=== PATIENT | male | born 1945 | race Caucasian/White ===

== ENCOUNTER 2019-06-22 16:23 | Inpatient (IN) | payer MEDICARE ==
[~2019-06-22] VITALS: Ht 177.8 cm; Wt 97.1 kg
[~2019-06-22 16:23] MED LIST changes: -AMOCLA875 PO; -Ceftriaxone2 G1 IV; -PIOG45 PO; -TAMS.4ER PO
[2019-06-22 17:27] LABS: BASOPHILS ABSOLUTE AUTO 0.04 K/mm3 (0.00-0.23); BASOPHILS PERCENT AUTO 0 % (0-2); EOSINOPHILS ABSOLUTE AUTO 0.01 K/mm3 (0.00-0.68); EOSINOPHILS PERCENT AUTO 0 % (0-6); Hematocrit 44.8 % (37.0-53.0); IMMATURE GRAN ABSOLUTE AUTO 0.06 K/mm3 (0.00-0.10); IMMATURE GRAN PERCENT AUTO 0 % (0-1); LYMPHOCYTES ABSOLUTE AUTO 2.31 K/mm3 (0.84-5.20); LYMPHOCYTES PERCENT AUTO 15 % (21-46); MONOCYTES PERCENT AUTO 10 % (4-13); Mean Corpuscular HGB 30.4 pg (26.0-34.0); Mean Corpuscular HGB Conc 31.3 g/dL (31.5-36.5); Mean Corpuscular Volume 97 fL (80-100); Mean Platelet Volume 11.1 fL (9.1-12.4); NEUTROPHILS ABSOLUTE AUTO 11.66 K/mm3 (1.96-9.15); NEUTROPHILS PERCENT AUTO 74 % (41-73); Platelet Count 179 K/mm3 (150-400); RDW Coefficient Variation 13.4 % (11.7-14.2); White Blood Cell Count 15.68 K/mm3 (4.00-11.30)
[2019-06-22 17:54] LABS: Alanine Aminotransfer (ALT/SGP 15 U/L (12-78); Albumin, Blood 3.6 g/dL (3.4-5.0); Albumin/Globulin Ratio 0.9 (0.8-1.8); Alk Phos 63 U/L (50-136); Anion Gap 6 mmol/L (6-16); Aspartate Aminotrans (AST/SGOT 13 U/L (12-37); Bilirubin, Total 0.9 mg/dL (0.1-1.0); Blood Urea Nitrogen 18 mg/dL (8-24); Bun/Creatinine Ratio 16.7 (12.0-20.0); CO2, Blood 27 mmol/L (21-32); Calcium, Blood 9.4 mg/dL (8.5-10.1); Chloride, Blood 105 mmol/L (98-108); Creatinine, Blood 1.08 mg/dL (0.60-1.20); Glomerular Filtration Rate >60 (60-); Glucose, Blood 109 mg/dL (70-99); Potassium, Blood 4.2 mmol/L (3.5-5.5); Sodium, Blood 138 mmol/L (136-145); Total Protein, Blood 7.6 g/dL (6.4-8.2)
[2019-06-22] MEDS ORDERED: PIOG45 PO (18:06)
--- NOTE | 2019-06-23 04:19 | NUR ---
PT ARRIVAL PT ARRIVES TO UNIT VIA [facility] 06/22 @ 1950. AMBULATES SBA TO BED. ADMISSION COMPLETE. 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 MRSA SWAB SENT OF ULCER TO BOTTOM R FT BEFORE 4 HR ABX TIMEFRAME. ASSUMING CARE OF PT.
--- NOTE | 2019-06-23 04:21 | NUR ---
SHIFT SUMMARY PT NPO SINCE [place] FOR I&D OF L FT ON 06/[address] OLEARY. PHOTO CONSENT OBTAINED AND PHOTOS DOCUMENTED IN CHART OF ULCERATION TO BOTTOM OF L FT. FT IS RED AND SWOLLEN, BUT DOES NOT EXTEND TO ANKLES. PT REPORTS CHRONIC NEUROPATHY TO BILAT FT. A&O X 4, INDEPENDENT IN RM. VSS, AFEBRILE. CBG 109, NO COV NEEDED. PT RESTING IN BED AT THIS TIME, CALL LT IN REACH. ABLE TO MAKE NEEDS KNOWN/USE CALL LT APPROP. WILL CONT TO MONITOR AND PROVIDE CARE UNTIL PRESUMED BY ONCOMING RN.
--- NOTE | 2019-06-23 05:21 | NUR ---
AM LABS DRAWN WITH NEW IV START BY THIS RN.
[2019-06-23 06:00] LABS: BASOPHILS ABSOLUTE AUTO 0.03 K/mm3 (0.00-0.23); BASOPHILS PERCENT AUTO 0 % (0-2); EOSINOPHILS ABSOLUTE AUTO 0.04 K/mm3 (0.00-0.68); EOSINOPHILS PERCENT AUTO 0 % (0-6); Hematocrit 36.5 % (37.0-53.0); Hemoglobin 11.9 g/dL (13.5-17.5); IMMATURE GRAN ABSOLUTE AUTO 0.04 K/mm3 (0.00-0.10); IMMATURE GRAN PERCENT AUTO 0 % (0-1); LYMPHOCYTES ABSOLUTE AUTO 1.68 K/mm3 (0.84-5.20); LYMPHOCYTES PERCENT AUTO 14 % (21-46); MONOCYTES PERCENT AUTO 10 % (4-13); Mean Corpuscular HGB 30.7 pg (26.0-34.0); Mean Corpuscular HGB Conc 32.6 g/dL (31.5-36.5); NEUTROPHILS ABSOLUTE AUTO 9.32 K/mm3 (1.96-9.15); NEUTROPHILS PERCENT AUTO 76 % (41-73); Platelet Count 167 K/mm3 (150-400); RDW Coefficient Variation 13.3 % (11.7-14.2); RDW Standard Deviation 45.6 fL (35.1-46.3); Red Blood Cell Count 3.87 M/mm3 (4.30-5.90); White Blood Cell Count 12.31 K/mm3 (4.00-11.30)
[2019-06-23 06:07] LABS: Mean Corpuscular Volume 94 fL (80-100)
[2019-06-23 06:27] LABS: International Normalized Ratio 1.02; Prothrombin Time Results 10.8 Sec (9.7-11.5)
--- NOTE | 2019-06-23 12:45 | NUR ---
PATIENT TO DAY SURGERY FOR I&D OF L FOOT WOUND.
--- NOTE | 2019-06-23 13:01 | NUR ---
History, Chart, Medications and Allergies reviewed before start of procedure. Patient confirms NPO status and agrees with scheduled surgery. Left foot/lower leg prepped with 2% Chlorhexidine cloth wipe, avoiding open wound.
--- NOTE | 2019-06-23 13:10 | NUR ---
PATIENT OUT OF ROOM CARE ROUNDING NOT DONE.
--- NOTE | 2019-06-23 15:31 | NUR ---
PATIENT ARRIVED BACK FROM PACU. VITALS ARE STABLE, ON RA. DENIES ANY PAIN TO L FOOT. L FOOT ELEVATED ON PILLOWS. PATIENT WIDE AWAKE AND MEAL TRAY ORDERED. DAUGHTER AT BEDSIDE.
--- NOTE | 2019-06-23 18:19 | NUR ---
PATIENT A/OX4, UP INDPENENDENTLY IN ROOM. HAD AN I&D OF L FOOD FOOT TODAY AND DRESSING REMAINS C/D/I. DENIES ANY PAIN OR DISCOMFORT AT SURGICAL SITE. WBAT AND L FOOT ELEVATED WHILE IN BED. VSS THIS SHIFT, ON RA. ADA DIET, BLOOD SUGARS ACHS. 18G IV TO R WRIST, SL BETWEEN ABX. CALM AND COOPERATIVE WITH CARE, CALLS APPROPRIATELY FOR ASSISTANCE.
--- NOTE | 2019-06-24 06:03 | NUR ---
SHIFT SUMMARY PT A/O INDEPENDENT. C/O PAIN IN L FOOT X2 AND MEDICATED PER EMAR. NO S/S OF HEAVY BLEEDING IN L FOOT. HE WAS ABLE TO SLEEP T/O NIGHT. KEPT L FOOT ELEVATED ON PILLOWS. CALL LIGHT IN REACH.
--- NOTE | 2019-06-24 16:35 | NUR ---
SHIFT SUMMARY PT WOUND EVALUATED BY DOCTOR. DUE TO REDNESS AND SWELLING THE PT WILL REMAIN FOR AT LEAST ONE MORE DAY HERE ON IV ANTIBIOTICS. PHYSICAL THERAPY WILL EVALUATE THE PT TODAY. THE PT IS ANXIOUS TO AMBULATE AND TO GO HOME. NO COMPLAINTS OF PAIN. PT IS A&O X4 AND COOPERATIVE WITH CARE. I TALKED WITH CHARGE, WE INVESTIGATED THE PT'S HISTORY AND FOUND NO REASON FOR THE PT TO REMAIN IN CONTACT PRECAUTIONS. PT DENIES STATING HE HAD MRSA, HE STATES HE HAD STAPH.
[2019-06-25 05:00] LABS: BASOPHILS ABSOLUTE AUTO 0.04 K/mm3 (0.00-0.23); BASOPHILS PERCENT AUTO 0 % (0-2); EOSINOPHILS ABSOLUTE AUTO 0.24 K/mm3 (0.00-0.68); EOSINOPHILS PERCENT AUTO 3 % (0-6); Hematocrit 35.6 % (37.0-53.0); Hemoglobin 11.5 g/dL (13.5-17.5); IMMATURE GRAN ABSOLUTE AUTO 0.04 K/mm3 (0.00-0.10); IMMATURE GRAN PERCENT AUTO 0 % (0-1); LYMPHOCYTES ABSOLUTE AUTO 1.77 K/mm3 (0.84-5.20); LYMPHOCYTES PERCENT AUTO 19 % (21-46); MONOCYTES ABSOLUTE AUTO 0.81 K/mm3 (0.16-1.47); MONOCYTES PERCENT AUTO 9 % (4-13); Mean Corpuscular HGB 30.7 pg (26.0-34.0); Mean Corpuscular HGB Conc 32.3 g/dL (31.5-36.5); Mean Corpuscular Volume 95 fL (80-100); Mean Platelet Volume 11.1 fL (9.1-12.4); NEUTROPHILS ABSOLUTE AUTO 6.56 K/mm3 (1.96-9.15); NEUTROPHILS PERCENT AUTO 69 % (41-73); Platelet Count 184 K/mm3 (150-400); RDW Standard Deviation 45.4 fL (35.1-46.3); Red Blood Cell Count 3.75 M/mm3 (4.30-5.90); White Blood Cell Count 9.46 K/mm3 (4.00-11.30)
[2019-06-25 05:24] LABS: Anion Gap 7 mmol/L (6-16); Blood Urea Nitrogen 14 mg/dL (8-24); Bun/Creatinine Ratio 12.6 (12.0-20.0); CO2, Blood 27 mmol/L (21-32); Calcium, Blood 8.4 mg/dL (8.5-10.1); Chloride, Blood 107 mmol/L (98-108); Creatinine, Blood 1.11 mg/dL (0.60-1.20); Glomerular Filtration Rate >60 (60-); Glucose, Blood 102 mg/dL (70-99); Potassium, Blood 3.9 mmol/L (3.5-5.5); Sodium, Blood 141 mmol/L (136-145)
--- NOTE | 2019-06-25 07:08 | NUR ---
SHIFT SUMMARY NO C/O PAIN. WAS ABLE TO SLEEP T/O NIGHT OFF AND ON. CALL LIGHT IN REACH.
[2019-06-25] MEDS ORDERED: AMOCLA875 PO (13:00)
--- NOTE | 2019-06-25 13:23 | NUR ---
DISCHARGE NOTE IV DC'D WNL. DISCHARGE MEDICATION CALLED IN TO PREFERED PHARMACY. PT PROVIDED WITH HARDCOPY AND VERBAL INSTRUCTIONS FOR DISCHARGE RE: DIAGNOSES, MEDICATIONS, FOLLOW UP APPOINTMENTS. PT HAD NO FURTHER QUESTIONS. PERSONAL POSSESSIONS GATHERED. PT DRESSED IN PERSONAL CLOTHING. PT ASSISTED OUT VIA WHEELCHAIR BY AEROBICS INSTRUCTOR.
== END 2019-06-25 13:26 | disposition home or self-care (01) | DRG 988 ==
LOC: ER 16:23 → MEDS 19:05
PROVIDERS: Emergency Medicine; Internal Medicine; Podiatrist; ADMIT Hospitalist
PROC: 0J9R0ZZ Drainage of Left Foot Subcutaneous Tissue and Fascia, Open Approach (ICD-10-PCS; principal; 2019-06-23 13:00)
DX: E11.621 Type 2 diabetes mellitus with foot ulcer (principal); L03.116 Cellulitis of left lower limb; L97.529 Non-pressure chronic ulcer of other part of left foot with unspecified severity; E11.628 Type 2 diabetes mellitus with other skin complications; I10 Essential (primary) hypertension; E78.5 Hyperlipidemia, unspecified; Z87.891 Personal history of nicotine dependence; B95.61 Methicillin susceptible Staphylococcus aureus infection as the cause of diseases classified elsewhere
CPT/HCPCS: 36415; 73630; 80048; 80053; 82947; 85025; 85610; 87071; 87075; 87081; 87147; 87205; 90471; 90714; 93005; 93010; 96365; 97116; 97161; 99285-25; A9270-GY; J1650; J2543; J2704; J3010; J7030; J7120

== ENCOUNTER → 2019-06-22 | Outpatient (CLI) | payer MEDICARE ==
[~2019-06-22] MED LIST: AMOCLA875 PO; Aspirin EC81 MG PO; Bactrim Ds Tab1 EACH PO; CEPH500 PO; Ceftriaxone2 G1 IV; GABA100 PO; GLIM4 PO; HYDMOR2 PO; Hydrocodone-Ap1 EA23 PO; LISI5 PO; Metformin HCl1000 MG PO; PIOG15 PO; PIOG45 PO; Simvastatin20 MG PO; TAMS.4ER PO; VITAMIN D31000 UNIT PO
== END | disposition home or self-care (01) ==
LOC: LAB SHORT 17:40 → LAB 17:40
DX: L02.612 Cutaneous abscess of left foot (principal)
CPT/HCPCS: 87070; 87077; 87147; 87186; 87205

== ENCOUNTER 2019-06-30 10:43 | Day surgery (SDC) | payer MEDICARE, OTHER ==
[~2019-06-30 10:43] MED LIST changes: +AMOCLA875 PO; +PIOG45 PO
[2019-06-30] MEDS ORDERED: Ceftriaxone2 G1 IV (14:51)
== END 2019-06-30 15:16 | disposition home or self-care (01) ==
LOC: ATC 10:43
DX: L03.116 Cellulitis of left lower limb (principal); E11.42 Type 2 diabetes mellitus with diabetic polyneuropathy; Z79.899 Other long term (current) drug therapy; Z79.84 Long term (current) use of oral hypoglycemic drugs; Z79.82 Long term (current) use of aspirin; Z87.891 Personal history of nicotine dependence
CPT/HCPCS: 96365; J0696

== ENCOUNTER 2019-07-01 13:57 | Day surgery (SDC) | payer MEDICARE, OTHER ==
[~2019-07-01 13:57] MED LIST changes: +Ceftriaxone2 G1 IV
== END 2019-07-01 14:34 | disposition home or self-care (01) ==
LOC: ATC 13:57
DX: L03.116 Cellulitis of left lower limb (principal); E11.621 Type 2 diabetes mellitus with foot ulcer; L97.529 Non-pressure chronic ulcer of other part of left foot with unspecified severity; E11.42 Type 2 diabetes mellitus with diabetic polyneuropathy; Z79.899 Other long term (current) drug therapy; Z79.84 Long term (current) use of oral hypoglycemic drugs; Z79.82 Long term (current) use of aspirin; Z87.891 Personal history of nicotine dependence
CPT/HCPCS: 96365; J0696

== ENCOUNTER 2019-07-02 14:57 | Day surgery (SDC) | payer MEDICARE, OTHER | END 2019-07-02 16:00 | disposition home or self-care (01) | LOC: ATC 14:57 | DX: L03.116 Cellulitis of left lower limb (principal); E11.40 Type 2 diabetes mellitus with diabetic neuropathy, unspecified; Z87.891 Personal history of nicotine dependence | CPT/HCPCS: 96365; J0696 ==

== ENCOUNTER 2019-07-04 17:45 | Observation (INO) | payer MEDICARE, OTHER ==
[~2019-07-04] VITALS: Ht 177.8 cm; Wt 92.4 kg
[2019-07-04 20:39] LABS: BASOPHILS ABSOLUTE AUTO 0.06 K/mm3 (0.00-0.23); BASOPHILS PERCENT AUTO 0 % (0-2); EOSINOPHILS PERCENT AUTO 1 % (0-6); Hematocrit 40.2 % (37.0-53.0); Hemoglobin 12.9 g/dL (13.5-17.5); IMMATURE GRAN ABSOLUTE AUTO 0.08 K/mm3 (0.00-0.10); IMMATURE GRAN PERCENT AUTO 1 % (0-1); LYMPHOCYTES ABSOLUTE AUTO 2.63 K/mm3 (0.84-5.20); LYMPHOCYTES PERCENT AUTO 18 % (21-46); MONOCYTES ABSOLUTE AUTO 0.93 K/mm3 (0.16-1.47); MONOCYTES PERCENT AUTO 7 % (4-13); Mean Corpuscular HGB 30.6 pg (26.0-34.0); Mean Corpuscular HGB Conc 32.1 g/dL (31.5-36.5); Mean Corpuscular Volume 95 fL (80-100); Mean Platelet Volume 10.3 fL (9.1-12.4); NEUTROPHILS ABSOLUTE AUTO 10.53 K/mm3 (1.96-9.15); NEUTROPHILS PERCENT AUTO 73 % (41-73); Platelet Count 409 K/mm3 (150-400); RDW Coefficient Variation 12.6 % (11.7-14.2); RDW Standard Deviation 44.2 fL (35.1-46.3); Red Blood Cell Count 4.22 M/mm3 (4.30-5.90); White Blood Cell Count 14.33 K/mm3 (4.00-11.30)
[2019-07-04 20:56] LABS: Alanine Aminotransfer (ALT/SGP 11 U/L (12-78); Albumin/Globulin Ratio 0.7 (0.8-1.8); Alk Phos 68 U/L (50-136); Anion Gap 5 mmol/L (6-16); Aspartate Aminotrans (AST/SGOT 13 U/L (12-37); Bilirubin, Total 0.3 mg/dL (0.1-1.0); Blood Urea Nitrogen 12 mg/dL (8-24); CO2, Blood 27 mmol/L (21-32); Calcium, Blood 9.3 mg/dL (8.5-10.1); Chloride, Blood 110 mmol/L (98-108); Creatinine, Blood 0.92 mg/dL (0.60-1.20); Globulin, Blood 4.6 g/dL (2.2-4.0); Glomerular Filtration Rate >60 (60-); Glucose, Blood 107 mg/dL (70-99); Potassium, Blood 4.2 mmol/L (3.5-5.5); Sodium, Blood 142 mmol/L (136-145); Total Protein, Blood 7.6 g/dL (6.4-8.2)
[2019-07-05 05:38] LABS: BASOPHILS ABSOLUTE AUTO 0.05 K/mm3 (0.00-0.23); BASOPHILS PERCENT AUTO 1 % (0-2); EOSINOPHILS ABSOLUTE AUTO 0.19 K/mm3 (0.00-0.68); EOSINOPHILS PERCENT AUTO 2 % (0-6); Hematocrit 38.4 % (37.0-53.0); Hemoglobin 12.1 g/dL (13.5-17.5); IMMATURE GRAN ABSOLUTE AUTO 0.08 K/mm3 (0.00-0.10); IMMATURE GRAN PERCENT AUTO 1 % (0-1); LYMPHOCYTES ABSOLUTE AUTO 2.57 K/mm3 (0.84-5.20); LYMPHOCYTES PERCENT AUTO 26 % (21-46); MONOCYTES ABSOLUTE AUTO 0.77 K/mm3 (0.16-1.47); MONOCYTES PERCENT AUTO 8 % (4-13); Mean Corpuscular HGB 30.1 pg (26.0-34.0); Mean Corpuscular HGB Conc 31.5 g/dL (31.5-36.5); Mean Corpuscular Volume 96 fL (80-100); Mean Platelet Volume 10.2 fL (9.1-12.4); NEUTROPHILS ABSOLUTE AUTO 6.35 K/mm3 (1.96-9.15); NEUTROPHILS PERCENT AUTO 63 % (41-73); Platelet Count 397 K/mm3 (150-400); RDW Coefficient Variation 12.6 % (11.7-14.2); RDW Standard Deviation 44.7 fL (35.1-46.3); Red Blood Cell Count 4.02 M/mm3 (4.30-5.90); White Blood Cell Count 10.01 K/mm3 (4.00-11.30)
--- NOTE | 2019-07-05 06:48 | NUR ---
SHIFT SUMMARY PT WAS A NEW ADMIT DURING THE NIGHT, ARRIVING ON THE FLOOR AT 2214. HE WAS ADMITTED FOR A L DIABETIC FOOT ULCER IN PREP FOR A SURGICAL DEBRIDEMENT AND POSSIBLE TOE AMPUTATION TODAY. PT'S FOOT WAS WRAPPED BY WIRING TECHNICIAN DR OLEARY IN HIS OFFICE PRIOR TO ADMISSION. HE DENIED ANY COMPLAINTS OF PAIN, NAUSEA OR SOB DURING THE NIGHT. VITAL SIGNS STABLE. NO ACUTE CHANGES IN PT CONDITION NOTED DURING THE NIGHT. WILL CONTINUE TO MONITOR AND TREAT PER EMAR UNTIL HAND OFF TO DAY SHIFT RN.
--- NOTE | 2019-07-05 11:41 | NUR ---
INTO SDS VIA [facility]. PT A&OX3-EAGLE. DENIES PAIN OR NAUSEA. HISTORY AND ALLERGIES REVIEWED. NPO STATUS CONFIRMED. LUNGS CLEAR-SATS>90% ON RA.
--- NOTE | 2019-07-05 14:15 | NUR ---
PT ARRIVED BACK FROM THE PACU, A/OX3 ON 1L/MIN O2 VIA NC, FAMILY AT THE BEDSIDE, BP TAKEN 99/67 HR 115, LUNCH TRAY ORDERED FOR THE PT, WILL CONTINUE TO MONITOR FOR CHANGES
--- NOTE | 2019-07-05 16:22 | NUR ---
PT IS A/OX3, PLEASANT AND COOPERATIVE, THE PT IS UP WITH 1 ASSIST, NON WEIGHT BEARING ON THE LEFT FOOT, THE PT WAS TAKEN TO THE OR TODAY BY DR. CABRALES AND HAD A DEBRIDEMENT AND SECOND TOE AMPUTATION, THE PT DENIES ANY PAIN AT THIS TIME, THE PT APPEARS TO BE BREATHING EASILY AT THIS TIME ON RA, FAMILY AT THE BEDSIDE, CALL LIGHT IN REACH WILL CONTINUE TO MONITOR AND ASSESS FOR CHANGES
--- NOTE | 2019-07-06 04:14 | NUR ---
SHIFT SUMMARY PT ADMITTED FOR DIABETIC FOOT ULCER. FULL CODE. ADA DIET. ELEVATE LLE ABOVE HIP LEVEL. CBG AT AC AND HS. KEEP DRESSING/INCISION CLEAN AND DRY UNTIL INSTRUCTED BY SURGEON. LOVENOX FOR DVT PROPHYLAXIS. tHE PT DID HAVE COMPLAINTS OF 2/10 PAIN THIS NIGHT, CALL TO DOCTOR TO OBTAIN ORDER FOR NORCO 5/325 1 TAB Q 4 HRS PRN. PT DID NOT HAVE ORDER FOR PAIN MEDICATION, POSSIBLY DUE TO NERVE BLOCK THAT WAS PERFORMED PER REPORT. PT STATED PAIN MEDICATION MADE PT PAIN 0/10. THE PT HAS APPEARED TO SLEEP COMFORTABLY MOST OF THE NIGHT WITH NO APPARENT SIGNS OF ACUTE DISTRESS. ABLE TO MAKE NEEDS KNOWN AND CALL LIGHT IN REACH.
[2019-07-06 18:04] LABS: Alanine Aminotransfer (ALT/SGP 12 U/L (12-78); Albumin, Blood 2.9 g/dL (3.4-5.0); Albumin/Globulin Ratio 0.6 (0.8-1.8); Alk Phos 66 U/L (50-136); Anion Gap 5 mmol/L (6-16); Aspartate Aminotrans (AST/SGOT 9 U/L (12-37); Bilirubin, Total 0.4 mg/dL (0.1-1.0); Blood Urea Nitrogen 9 mg/dL (8-24); Bun/Creatinine Ratio 7.3 (12.0-20.0); CO2, Blood 30 mmol/L (21-32); Chloride, Blood 106 mmol/L (98-108); Creatinine, Blood 1.24 mg/dL (0.60-1.20); Globulin, Blood 4.6 g/dL (2.2-4.0); Glomerular Filtration Rate >60 (60-); Glucose, Blood 157 mg/dL (70-99); Potassium, Blood 4.1 mmol/L (3.5-5.5); Sodium, Blood 141 mmol/L (136-145); Total Protein, Blood 7.5 g/dL (6.4-8.2)
--- NOTE | 2019-07-06 19:02 | NUR ---
PT IS A/OX3, PLEASANT AND COOPERATIVE, THE PT IS UP WITH MINIMAL ASSIST, THE PT TODAY WAS UP AMBULATING IN THE [place] HEEL TOUCH ON THE LEFT FOOT WITH THE PHYSICAL THERAPIST, THE PT FELT GOOD FOR MOST OF THE DAY DENIED PAIN UNTIL THIS EVENING THE PT REPORTED THAT HE WAS STARTING TO FEEL PAIN IN THE RIGHT LOWER QUAD ABD A NORCO WAS GIVEN, AN HOUR LATER THE PTS DAUGHTER WAS IN THE ROMM AND THE PT STATED THAT HE FELT HIS PAIN WAS WORSE AND THAT HE WAS NAUSEATED, A CALL WAS MADE TO DR. BRIGGS AND THE PTS DC WAS POSTPONED A CT OF THE ABD WAS DONE, THE PT WAS GIVEN IV TORADOL, A STAT UA WAS ORDERED ND THE PT STATED THAT HE WAS NOT READY TO URINATE JUST YET, INSTRUCTION TO COLLECT WAS LEFT WITH THE NIGHT STAFF, CALL LIGHT IN REACH, FAMILY AT THE BEDSIDE, THE PT APPEARS TO BE BREATHING EASILY ON RA
--- NOTE | 2019-07-06 20:03 | NUR ---
1930: ASSUMED CARE OF PATIENT. PT LAYING IN BED, REPORTS PAIN RLQ RADIATING TO BACK(APPARENT KIDNEY STONE PER REPORT) DAY RN TO GIVE PAIN MED. PT CALM AND COOPERATIVE, DENIES SOB/NAUSEA. ALERT AND ORIENTED AND ABLE TO MAKE NEEDS KNOWN. CALL CHAPPELL WITHIN REACH.
[2019-07-07 07:58] LABS: Source, Urine Clean Catch
[2019-07-07 08:14] LABS: Appearance, Urine Clear (Clear); Bilirubin, Urine Neg (Neg); Blood, Urine Neg (Neg); Color, Urine Yellow (P-Yellow); Glucose Qualitative, Urine Neg (Neg); Ketones, Urine Neg (Neg); Leukocyte Esterase, Urine Neg (Neg); Nitrite, Urine Neg (Neg); Protein, Urine 1+ (Neg); Specific Gravity, Urine 1.015 (1.003-1.022); Urobilinogen, Urine NORM (Normal)
--- NOTE | 2019-07-07 09:00 | NUR ---
PT PLEASANT COOP A/O/ DENIES PIAN AT THIS TIME. H/R REG, NO MURMER NOTED. NO TELE. LUNGS CLEAR RESP EASY, UNLABORED. ON R.A. BT X4 LAST BM TODAY. LOOSE. WILL HOLD STOOL SOFT. VOIDS URINAL AND SBA 1 ASST TO BATHROOM, BED IN LOW POSITION, CALL LITE IN REACH. CALLS APPROP
--- NOTE | 2019-07-07 14:50 | NUR ---
PER DR ANGELIKA MEJÍA D/Pili L/R
[2019-07-07] MEDS ORDERED: TAMS.4ER PO (16:39)
[2019-07-07] MEDS ORDERED: AMOCLA875 PO (16:40)
--- NOTE | 2019-07-07 17:22 | NUR ---
IV PULLED INTACT. NO TELE. DISCHARGE REVIEWED WITH PT AND DAUGHTER. HANDED HARD SCRIPT. PT VERBALIZED UNDERSTANDING OF MEDS AND TWO APPOINTMENTS. PT WHEELED TO DOOR BY LENNY. [id number]
== END 2019-07-07 17:19 | disposition home or self-care (01) ==
LOC: ER 17:45 → MEDS 17:46
PROVIDERS: Internal Medicine Endocrinology, Diabetes & Metabolism; Physician Assistant; Podiatrist; ADMIT Hospitalist
PROC: 0Y6N0ZB Detachment at Left Foot, Partial 2nd Ray, Open Approach (ICD-10-PCS; principal; 2019-07-05 12:20)
DX: E11.69 Type 2 diabetes mellitus with other specified complication (principal); E11.621 Type 2 diabetes mellitus with foot ulcer; E11.52 Type 2 diabetes mellitus with diabetic peripheral angiopathy with gangrene; M86.172 Other acute osteomyelitis, left ankle and foot; M86.672 Other chronic osteomyelitis, left ankle and foot; L97.529 Non-pressure chronic ulcer of other part of left foot with unspecified severity; L03.116 Cellulitis of left lower limb; I96 Gangrene, not elsewhere classified; N20.0 Calculus of kidney; I10 Essential (primary) hypertension; E78.5 Hyperlipidemia, unspecified; Z87.891 Personal history of nicotine dependence; Z79.899 Other long term (current) drug therapy; Z79.82 Long term (current) use of aspirin; Z79.84 Long term (current) use of oral hypoglycemic drugs
CPT/HCPCS: 36415; 73630; 74177; 80053; 82947; 85025; 87071; 87075; 87077; 87147; 87186; 87205; 88305; 88311; 96365; 96366; 96372; 97162; 97165; 99284; A9270-GY; G0378; J1100; J1650; J1885; J2250; J2405; J2543; J2704; J3010; J3480; J7050; J7120; Q9967

== ENCOUNTER → 2020-02-13 | Outpatient (CLI) | payer MEDICARE, OTHER ==
[~2020-02-13] MED LIST changes: +TAMS.4ER PO
== END | disposition home or self-care (01) ==
LOC: LAB EV 12:30 → LAB SHORT 12:30
DX: Z51.81 Encounter for therapeutic drug level monitoring (principal); Z79.899 Other long term (current) drug therapy
CPT/HCPCS: G0480

== ENCOUNTER 2021-01-08 10:12 | Day surgery (SDC) | payer MEDICARE, OTHER ==
[~2021-01-08] VITALS: Ht 177.8 cm; Wt 79.9 kg
[2021-01-13 12:27] LABS: Performing Lab SYMBIODX; Test Name HER2 FISH
[2021-02-04] MEDS ORDERED: GABA100 PO (16:52)
[2021-02-04] MEDS ORDERED: Norco 5-325 Ta1 EACH PO (16:52)
== END 2021-01-08 11:21 | disposition home or self-care (01) ==
LOC: ORSCSDS 10:12
PROVIDERS: Internal Medicine Gastroenterology; Pathology Clinical Pathology/Laboratory Medicine
PROC: 0DB68ZX Excision of Stomach, Via Natural or Artificial Opening Endoscopic, Diagnostic (ICD-10-PCS; principal; 2021-01-08 11:45)
DX: R63.4 Abnormal weight loss (principal); C16.9 Malignant neoplasm of stomach, unspecified; R63.0 Anorexia; R11.2 Nausea with vomiting, unspecified; E11.9 Type 2 diabetes mellitus without complications; I10 Essential (primary) hypertension; Z80.0 Family history of malignant neoplasm of digestive organs; Z79.82 Long term (current) use of aspirin; Z79.84 Long term (current) use of oral hypoglycemic drugs; Z79.899 Other long term (current) drug therapy
CPT/HCPCS: 82947; 88305; 88342; 88360; 88374; J2704; J7120

== ENCOUNTER 2021-02-10 06:01 | Day surgery (SDC) | payer MEDICARE, OTHER ==
[~2021-02-10] VITALS: Ht 177.8 cm; Wt 71.8 kg
[~2021-02-10 06:01] MED LIST changes: +Norco 5-325 Ta1 EACH PO
--- NOTE | 2021-02-10 06:49 | NUR ---
PT TO SDS VIA . History, Chart, Medications and Allergies reviewed before start of procedure. Lungs clear T/O to Auscultation. Patient confirms NPO status and agrees with scheduled surgery. Surgical site prepped with 2% Chlorhexidine cloth wipe. DENTURES/GLASSES REMOVED.
--- NOTE | 2021-02-10 09:42 | NUR ---
Patient up to Ambulate independently. Gait steady. Discharge instructions reviewed with patient. Patient verbalizes understanding. Copy given to patient to take home. Discharged via wheelchair to private car for ride home WITH DAUGHTER
== END 2021-02-10 22:56 | disposition home or self-care (01) ==
LOC: ORSCMMR 06:01 → ORD 07:30 → ORSCMMR 22:56
PROVIDERS: Surgery
PROC: B5131ZA Fluoroscopy of Right Jugular Veins using Low Osmolar Contrast, Guidance (ICD-10-PCS; principal; 2021-02-10 07:30)
PROC: 05HM33Z Insertion of Infusion Device into Right Internal Jugular Vein, Percutaneous Approach (ICD-10-PCS; principal; 2021-02-10 07:30)
DX: C16.9 Malignant neoplasm of stomach, unspecified (principal); C78.7 Secondary malignant neoplasm of liver and intrahepatic bile duct; C80.0 Disseminated malignant neoplasm, unspecified; R63.0 Anorexia; Z87.891 Personal history of nicotine dependence; E11.9 Type 2 diabetes mellitus without complications; E78.5 Hyperlipidemia, unspecified; I10 Essential (primary) hypertension; Z79.899 Other long term (current) drug therapy; Z79.84 Long term (current) use of oral hypoglycemic drugs; Z79.82 Long term (current) use of aspirin
CPT/HCPCS: 77001; 82947; C1788; J0690; J1100; J1642; J2370; J2405; J2704; J3010; J7120

== ENCOUNTER 2021-03-24 12:04 | Day surgery (SDC) | payer MEDICARE, OTHER ==
--- NOTE | 2021-03-24 12:35 | NUR ---
ARRIVED TO ROOM W/ FAMILY MEMBER SARI W/C, ASSISTED TO RECLINER, HERE FOR 1 UNIT PRBC AND L HAND AND WRIST XRAY, CALL LIGHT WITHIN REACH.
--- NOTE | 2021-03-24 14:03 | NUR ---
1 UNIT PRBC STARTED, LUNGS CLEAR, DENIES ANY DISCOMFORT AT THIS TIME, FLUIDS OFFERED, PT DRINKING WATER AND JUICE, CONT. TO MONITOR, 20G IV STARTED ON RAC, TOLERATED WELL.
--- NOTE | 2021-03-24 16:41 | NUR ---
1 UNIT PRBC TRANSFUSED, PT TOLERATED WELL, LUNGS CLEAR, PT'S DAUGHTER CALLED TO LICENSED OCCUPATIONAL THERAPY ASSISTANT PT.
--- NOTE | 2021-03-24 17:31 | NUR ---
DC'D HOME WITH DAUGHTER, IV DC'D, CATH INTACT.
== END 2021-03-24 17:31 | disposition home or self-care (01) ==
LOC: SURS 12:04 → TRN 12:04 → SURS 17:31 → TRN 17:31 → EDSTATUS 03-27 09:58
DX: D64.81 Anemia due to antineoplastic chemotherapy (principal); T45.1X5A Adverse effect of antineoplastic and immunosuppressive drugs, initial encounter
CPT/HCPCS: 36415; 36430; 73100; 73120; 80053; 85025; 86850; 86900; 86901; 86923; J7040; P9016

== ENCOUNTER 2021-03-31 04:15 | Emergency (ER) | payer MEDICARE, OTHER ==
[~2021-03-31] VITALS: Ht 177.8 cm; Wt 77.1 kg
== END 2021-03-31 05:39 | disposition home or self-care (01) ==
LOC: ER 04:15
DX: S40.011A Contusion of right shoulder, initial encounter (principal); I10 Essential (primary) hypertension; E78.5 Hyperlipidemia, unspecified; E11.621 Type 2 diabetes mellitus with foot ulcer; Z79.899 Other long term (current) drug therapy; W01.0XXA Fall on same level from slipping, tripping and stumbling without subsequent striking against object, initial encounter; Y92.009 Unspecified place in unspecified non-institutional (private) residence as the place of occurrence of the external cause
CPT/HCPCS: 73030; 99283-25; A9270

== ENCOUNTER 2021-09-05 08:59 | Day surgery (SDC) | payer MEDICARE, OTHER ==
[~2021-09-05] VITALS: Ht 177.8 cm; Wt 69.0 kg
[~2021-09-05 08:59] MED LIST changes: +Aspir 8181 MG PO; +DEXA4 PO; +HYDR1TAB94 PO; +OMEP20ER PO; +ONDA4ODT MM; +Vitamin D1000 UNI1 PO; +ZOCOR20 MG PO
--- NOTE | 2021-09-05 11:55 | NUR ---
PT BACK TO RECOVERY ROOM VIA RECLINER. VSS. PT DENIES ANY PAIN AT SITE. NO BLEEDING, OOZING OR HEMATOMA NOTED. MD AT BEDSIDE. AWAITING CHEST XRAY. WILL CONTINUE TO MONITOR.
--- NOTE | 2021-09-05 12:14 | NUR ---
PT TO IMG FOR ROUTINE C XRAY.
--- NOTE | 2021-09-05 12:27 | NUR ---
PT BACK FROM IMG. SITTING IN RECLINER EATING LUNCH. PT DENIES ANY PAIN. NO BLEEDING, OOZING OR HEMATOMA NOTED. VSS. WILL CONTINUE TO MONITOR.
--- NOTE | 2021-09-05 14:44 | NUR ---
IV ANCEF INFUSING ORDERED BY MD PRIOR TO DC. PT DENIES ANY PAIN AT SITE. NO BLEEDING, OOZING OR HEMATOMA NOTED.
--- NOTE | 2021-09-05 15:32 | NUR ---
DISCHARGE PT AMBULATED TO RESTROOM AND DRESSED SELF WITH NO COMPLICATIONS. PTS SITE WITH NO BLEEDING, OOZING OR HEMATOMA NOTED. PT DENIES ANY PAIN. PT STATES HIS UNDERSTANDING OF SITE CARE INSTRUCTIONS AND DC INSTRUCTIONS AND DENIES ANY QUESTIONS OR CONCERNS UPON DC. IV DCD WITH CATH INTACT. VSS. PTS L ARM PLACED IN A SLING PER MD REQUEST. PT TAKEN TO EXIT VIA WHEELCHAIR WHERE FRIEND WAITED WITH VEHICLE.
== END 2021-09-05 15:30 | disposition home or self-care (01) ==
LOC: MHTC 08:59
DX: I49.5 Sick sinus syndrome (principal); E11.42 Type 2 diabetes mellitus with diabetic polyneuropathy; Z79.84 Long term (current) use of oral hypoglycemic drugs; E78.5 Hyperlipidemia, unspecified; I10 Essential (primary) hypertension; M47.9 Spondylosis, unspecified; Z85.028 Personal history of other malignant neoplasm of stomach; Z85.05 Personal history of malignant neoplasm of liver; Z86.010 Personal history of colon polyps; Z89.422 Acquired absence of other left toe(s); Z89.421 Acquired absence of other right toe(s)
CPT/HCPCS: 33208; 71046; 93005; 93010; 99152; 99153; C1785; C1894; C1898; J0690; J1580; J1644; J2250; J3010; J7030; J7040

== ENCOUNTER 2021-12-26 06:27 | Inpatient (IN) | payer MEDICARE, OTHER ==
[~2021-12-26] VITALS: Ht 175.3 cm; Wt 63.5 kg
[2021-12-26] MEDS ORDERED: WARF5 PO (06:35)
[2021-12-26] MEDS ORDERED: METO25ER PO (06:35)
[2021-12-26] MEDS ORDERED: LISI5 PO (06:36)
[2021-12-26 09:35] LABS: BASOPHILS ABSOLUTE AUTO 0.03 K/mm3 (0.00-0.23); BASOPHILS PERCENT AUTO 0 % (0-2); EOSINOPHILS PERCENT AUTO 0 % (0-6); Hematocrit 36.7 % (37.0-53.0); Hemoglobin 11.9 g/dL (13.5-17.5); IMMATURE GRAN ABSOLUTE AUTO 0.12 K/mm3 (0.00-0.10); IMMATURE GRAN PERCENT AUTO 1 % (0-1); LYMPHOCYTES ABSOLUTE AUTO 0.77 K/mm3 (0.84-5.20); LYMPHOCYTES PERCENT AUTO 5 % (21-46); MONOCYTES ABSOLUTE AUTO 0.79 K/mm3 (0.16-1.47); MONOCYTES PERCENT AUTO 5 % (4-13); Mean Corpuscular HGB 29.8 pg (26.0-34.0); Mean Corpuscular HGB Conc 32.4 g/dL (31.5-36.5); Mean Corpuscular Volume 92 fL (80-100); Mean Platelet Volume 9.9 fL (9.1-12.4); NEUTROPHILS ABSOLUTE AUTO 14.03 K/mm3 (1.96-9.15); NEUTROPHILS PERCENT AUTO 89 % (41-73); Platelet Count 247 K/mm3 (150-400); RDW Coefficient Variation 13.8 % (11.7-14.2); RDW Standard Deviation 45.8 fL (35.1-46.3); Red Blood Cell Count 3.99 M/mm3 (4.30-5.90); White Blood Cell Count 15.74 K/mm3 (4.00-11.30)
[2021-12-26 09:45] LABS: International Normalized Ratio 1.4; Prothrombin Time Results 14.4 Sec (9.7-11.5)
[2021-12-26 09:49] LABS: Anion Gap 6 mmol/L (6-16); Blood Urea Nitrogen 16 mg/dL (8-24); Bun/Creatinine Ratio 20.4 (12.0-20.0); CO2, Blood 30 mmol/L (21-32); Calcium, Blood 8.3 mg/dL (8.5-10.1); Chloride, Blood 105 mmol/L (98-108); Creatinine, Blood 0.79 mg/dL (0.60-1.20); Glomerular Filtration Rate >60 (60-); Glucose, Blood 123 mg/dL (70-99); Potassium, Blood 3.5 mmol/L (3.5-5.5); Sodium, Blood 141 mmol/L (136-145)
[2021-12-26] MEDS ORDERED: Norco 5-325 MG PO (09:52)
--- NOTE | 2021-12-26 12:46 | NUR ---
PATIENT ARRIVE TO ROOM #217 VIA GURNEY FROM ER AT 1210. ALERT AND ORIENTED X 4, PLEASANT AFFECT. STATES HIS PAIN /. FENTANYL 25MCG. IV GIVEN AND PT. VERBALIZE RELIEF. STATES THERE IS NUMBNESS IN BILAT. LE DUE TO NUEROPATHY. INSTRUCTED PT. TO USE CALL LIGHT FOR ANY NEEDS, CONCERNS, COMPLAINTS. CALL LIGHT IN REACH. PT. AT THIS TIME IS NPO. PATIENT ALSO STATES HE STARTED COUMADIN ON 12/17/21 AND HIS LAST DOSE WAS 12/24/21 IN THE EVENING.
[2021-12-26 12:49] LABS: Influenza A, PCR NEGATIVE (NEGATIVE); Influenza B, PCR NEGATIVE (NEGATIVE); Resp Syncytial Virus, PCR NEGATIVE (NEGATIVE)
[2021-12-26 13:08] LABS: SARS-Cov-2 (COVID-19) PCR, MMC POSITIVE (NEGATIVE)
--- NOTE | 2021-12-26 14:53 | NUR ---
DR. VALENZUELA CALLED TO NOTIFY OF LAST WARFARIN DOSE, COVID STATUS, AND NPO STATUS. NEW ORDERS RECIEVED, CHEMSTICKS ADDED FOR AC AND HS. LAB TO DRAW PT/INR AT THIS TIME. PATIENT RESTING WITHOUT COMPLAINT. ROOM STATUS ISOLATION, DROPLET PRECAUTIONS POSTED.
[2021-12-26 15:42] LABS: International Normalized Ratio 1.37; Prothrombin Time Results 14.1 Sec (9.7-11.5)
[2021-12-27 05:16] LABS: BASOPHILS ABSOLUTE AUTO 0.02 K/mm3 (0.00-0.23); BASOPHILS PERCENT AUTO 0 % (0-2); EOSINOPHILS ABSOLUTE AUTO 0.08 K/mm3 (0.00-0.68); EOSINOPHILS PERCENT AUTO 1 % (0-6); Hemoglobin 11.4 g/dL (13.5-17.5); IMMATURE GRAN ABSOLUTE AUTO 0.09 K/mm3 (0.00-0.10); IMMATURE GRAN PERCENT AUTO 1 % (0-1); LYMPHOCYTES ABSOLUTE AUTO 1.34 K/mm3 (0.84-5.20); LYMPHOCYTES PERCENT AUTO 15 % (21-46); MONOCYTES ABSOLUTE AUTO 0.84 K/mm3 (0.16-1.47); MONOCYTES PERCENT AUTO 9 % (4-13); Mean Corpuscular HGB 29.8 pg (26.0-34.0); Mean Corpuscular HGB Conc 32.6 g/dL (31.5-36.5); Mean Corpuscular Volume 92 fL (80-100); NEUTROPHILS ABSOLUTE AUTO 6.69 K/mm3 (1.96-9.15); NEUTROPHILS PERCENT AUTO 74 % (41-73); Platelet Count 229 K/mm3 (150-400); RDW Standard Deviation 45.2 fL (35.1-46.3); Red Blood Cell Count 3.82 M/mm3 (4.30-5.90); White Blood Cell Count 9.06 K/mm3 (4.00-11.30)
[2021-12-27 05:29] LABS: International Normalized Ratio 1.39; Prothrombin Time Results 14.3 Sec (9.7-11.5)
--- NOTE | 2021-12-27 05:29 | NUR ---
SHIFT REPORT: PATIENT ALERT AND ORIENTED X'S 4. MEDICATED WITH FENTANYL X'S 2 FOR PAIN MANAGEMENT, EFFECTIVE RELIEF, SLEPT WELL THROUGH NIGHT. NPO AFTER MIDNIGHT, CURRENLY RESTING PEACEFULLY IN BED. DENIES PAIN OR DISCOMFORT AT THIS TIME. SAFETY MAINTAINED, CALL CHAPPELL IN REACH.
[2021-12-27 05:37] LABS: Alanine Aminotransfer (ALT/SGP 24 U/L (12-78); Albumin/Globulin Ratio 0.6 (0.8-1.8); Alk Phos 79 U/L (50-136); Anion Gap 7 mmol/L (6-16); Aspartate Aminotrans (AST/SGOT 25 U/L (12-37); Bilirubin, Total 0.4 mg/dL (0.1-1.0); Blood Urea Nitrogen 11 mg/dL (8-24); Bun/Creatinine Ratio 15.5 (12.0-20.0); CO2, Blood 28 mmol/L (21-32); Calcium, Blood 8.6 mg/dL (8.5-10.1); Chloride, Blood 105 mmol/L (98-108); Creatinine, Blood 0.71 mg/dL (0.60-1.20); Globulin, Blood 3.6 g/dL (2.2-4.0); Glomerular Filtration Rate >60 (60-); Glucose, Blood 115 mg/dL (70-99); Potassium, Blood 3.4 mmol/L (3.5-5.5); Sodium, Blood 140 mmol/L (136-145); Total Protein, Blood 5.6 g/dL (6.4-8.2)
--- NOTE | 2021-12-27 08:09 | NUR ---
0725: Dr. Hilton in room with patient. 0730: Assessed pt, vitals taken (vss), surgical consent/blood consent signed by patient. Hospitalist came in to see pt. 0740: Pt was taken out to surgery.
--- NOTE | 2021-12-27 09:49 | NUR ---
12/27/21 0949 Sudha Guzman PATIENT RECOVERED IN OR 4 BY KENNETH FULLER RN AND THU QUEVEDO RN
--- NOTE | 2021-12-27 14:37 | NUR ---
10:13 PT ARRIVED AT SURGICAL FLOOR AT ROOM 208. AOX4. PODO R JAKE HIP ARTHROPLASTY WITH DR. VALENZUELA. VSS. PT DENIES PAIN UPON ARRIVAL. BUT REPORTS SOME NAUSEA, MEDICATED WITH ZOFRAN. PT ABLE TO WIGGLE BILATERAL TOES, PEDAL PULSES ARE STRONG. DENIES N/T. CAP REFILL WNL. AQUACEL DRESSING ON R HIP, CDI. IV INFUSING. LUNGS ARE DIM BUT CLEAR. BT HYPO ACTIVE. CALL LGIHT WITHIN REACH. WILL CONTINUE TO MONITOR.
--- NOTE | 2021-12-27 14:41 | NUR ---
PT SMALL AMOUNT OF VOMITING AT LUNCH. MEDICATED WITH PHENEGRAN 12.5. PT REPORTS RELIEF AFTER THEN WENT BACK TO SLEEP.
--- NOTE | 2021-12-27 14:42 | NUR ---
1430: PHYSICAL THERAPIST IN ROOM WITH PT. WB TOLERATED.
--- NOTE | 2021-12-27 19:22 | NUR ---
SHIFT SUMMARY PODO R JAKE HIP WITH DR. VALENZUELA. R AQUACEL DRESSING CDI. PEDAL PULSES ARE STRONG, CAP REFILL WNL. AND MOVES ALL EXTREMITIES. PT ALERT AND ORIENTED X4. PT HAD EPISODE OF HYPOTENSION BUT ASYMPTOMATIC. TOLERATING PO IN LATER AFTERNOON, PT FELT NAUSEATED AFTER SURGERY, VOMITED ONCE. MEDICATED WITH ZOFRAN AND PHENEGRAN. NAUSEA IMPROVED AND PT ATE HIS DINNER W/O VOMITING. PT STS HE DOES NOT HAVE DENTURES/TEETH. WOULD PREFER SOFT FOODS AT THIS TIME. DIET CHANGED TO SOFT BITE SIZE. PT WORKED WITH PHYSICAL THERAPY TODAY, SAT AT THE EOB AND DID BED EXERCISES, DID NOT PROGRESS TO AMBULATING DUE HYPOTENSIVE EPISODE. LR INFUSING FOR FLUIDS. PAIN IS WELL CONTROLLED, REPORTS MILD PAIN AND PAIN MANAGED WITH TYLENOL AND TORADOL. VOIDING IN URINAL. CALLS APPROPRIATELY. CALL LIGHT WITHIN REACH. REPORT GIVEN TO ABILIO VILLALOBOS.
[2021-12-28 05:09] LABS: BASOPHILS ABSOLUTE AUTO 0.02 K/mm3 (0.00-0.23); BASOPHILS PERCENT AUTO 0 % (0-2); EOSINOPHILS PERCENT AUTO 0 % (0-6); Hematocrit 32.6 % (37.0-53.0); Hemoglobin 10.6 g/dL (13.5-17.5); IMMATURE GRAN ABSOLUTE AUTO 0.09 K/mm3 (0.00-0.10); IMMATURE GRAN PERCENT AUTO 1 % (0-1); LYMPHOCYTES ABSOLUTE AUTO 0.88 K/mm3 (0.84-5.20); LYMPHOCYTES PERCENT AUTO 7 % (21-46); MONOCYTES ABSOLUTE AUTO 1.03 K/mm3 (0.16-1.47); MONOCYTES PERCENT AUTO 8 % (4-13); Mean Corpuscular HGB 29.9 pg (26.0-34.0); Mean Corpuscular HGB Conc 32.5 g/dL (31.5-36.5); Mean Corpuscular Volume 92 fL (80-100); Mean Platelet Volume 10.3 fL (9.1-12.4); NEUTROPHILS ABSOLUTE AUTO 10.61 K/mm3 (1.96-9.15); NEUTROPHILS PERCENT AUTO 84 % (41-73); Platelet Count 252 K/mm3 (150-400); RDW Coefficient Variation 13.9 % (11.7-14.2); RDW Standard Deviation 46.1 fL (35.1-46.3); Red Blood Cell Count 3.55 M/mm3 (4.30-5.90); White Blood Cell Count 12.63 K/mm3 (4.00-11.30)
[2021-12-28 05:29] LABS: Albumin, Blood 1.9 g/dL (3.4-5.0); Anion Gap 7 mmol/L (6-16); Blood Urea Nitrogen 12 mg/dL (8-24); Bun/Creatinine Ratio 15.5 (12.0-20.0); CO2, Blood 30 mmol/L (21-32); Chloride, Blood 104 mmol/L (98-108); Creatinine, Blood 0.77 mg/dL (0.60-1.20); Glomerular Filtration Rate >60 (60-); Glucose, Blood 86 mg/dL (70-99); Phosphorus, Blood 3.3 mg/dL (2.5-4.9); Potassium, Blood 4.1 mmol/L (3.5-5.5); Sodium, Blood 141 mmol/L (136-145)
--- NOTE | 2021-12-28 06:20 | NUR ---
SLEPT WELL THROUGH NIGHT. DENIED PAIN OR DISCOMFORT. NO ACUTE DISTRESS NOTED. AQUACEL DRESSING C/D/I. TOLERATING FLUIDS AND DIET, IV FLUIDS CONTINUED AT THIS TIME. SAFETY MAINTAINED, CALL CHAPPELL IN REACH.
--- NOTE | 2021-12-28 10:17 | NUR ---
10:10 DR NG CAME IN TO SEE PT. VERBAL ORDER DC THE TELE MONITOR. WILL DC' TELE NOW.
--- NOTE | 2021-12-28 16:30 | NUR ---
SHIFT SUMMARY NO ACUTE CHANGES OVERNIGHT. POD1 R JAKE HIP WITH AQUACEL DRESSING, CDI. PT AMBULATES WITH SBA FWW AND GB. PT WORKED WITH THERAPY TODAY AND WALKED IN HIS ROOM. PT REPORTS MINIMAL PAIN T/O SHIFT. PAIN MANAGED WITH TYLENOL AND TORADOL. TOLERATING PO INTAKE DENIES NAUSEA AND VOMITING. VOIDING. PASSING FLATUS. VSS, MILDLY HYPOTENSIVE THIS AFTERNOON BUT ASYMPTOMATIC. PT DENIES CP, SOB, N/T. LINEN CHANGED. FULL BED BATH, ORAL CARE, SHAMPOO THIS AFTERNOON. SALINE LOCKED. PT APPEARS TO HAVE SOME REDNESS IN COCCYX, MEPLEX IN PLACED. CALL LIGHT IN PLACED. WILL PROVIDE REPORT TO ONCOMING NURSE.
--- NOTE | 2021-12-29 02:17 | NUR ---
PATIENT TO DRINK AND TRY TO VOID WITHIN THE HOUR.
[2021-12-29 04:24] LABS: BASOPHILS ABSOLUTE AUTO 0.04 K/mm3 (0.00-0.23); BASOPHILS PERCENT AUTO 1 % (0-2); EOSINOPHILS ABSOLUTE AUTO 0.07 K/mm3 (0.00-0.68); EOSINOPHILS PERCENT AUTO 1 % (0-6); Hematocrit 35.4 % (37.0-53.0); Hemoglobin 11.8 g/dL (13.5-17.5); IMMATURE GRAN ABSOLUTE AUTO 0.13 K/mm3 (0.00-0.10); IMMATURE GRAN PERCENT AUTO 2 % (0-1); LYMPHOCYTES ABSOLUTE AUTO 0.96 K/mm3 (0.84-5.20); LYMPHOCYTES PERCENT AUTO 12 % (21-46); MONOCYTES ABSOLUTE AUTO 0.76 K/mm3 (0.16-1.47); MONOCYTES PERCENT AUTO 9 % (4-13); Mean Corpuscular HGB 29.4 pg (26.0-34.0); Mean Corpuscular HGB Conc 33.3 g/dL (31.5-36.5); Mean Corpuscular Volume 88 fL (80-100); NEUTROPHILS ABSOLUTE AUTO 6.34 K/mm3 (1.96-9.15); NEUTROPHILS PERCENT AUTO 76 % (41-73); RDW Coefficient Variation 14.2 % (11.7-14.2); Red Blood Cell Count 4.01 M/mm3 (4.30-5.90)
[2021-12-29 04:25] LABS: Albumin, Blood 1.7 g/dL (3.4-5.0); Anion Gap 6 mmol/L (6-16); Blood Urea Nitrogen 18 mg/dL (8-24); Bun/Creatinine Ratio 21.9 (12.0-20.0); CO2, Blood 28 mmol/L (21-32); Calcium, Blood 7.7 mg/dL (8.5-10.1); Chloride, Blood 106 mmol/L (98-108); Creatinine, Blood 0.82 mg/dL (0.60-1.20); Glomerular Filtration Rate >60 (60-); Glucose, Blood 79 mg/dL (70-99); Mean Platelet Volume 10.3 fL (9.1-12.4); Phosphorus, Blood 2.1 mg/dL (2.5-4.9); Platelet Count 192 K/mm3 (150-400); Potassium, Blood 4.2 mmol/L (3.5-5.5); Sodium, Blood 140 mmol/L (136-145)
--- NOTE | 2021-12-29 05:11 | NUR ---
SHIFT SUMMARY: PT IN BED AAOX4. VS WNL WITH NO SIGNS OF DISTRESS NOTED. PACEMAKER LEFT SIDE. IV SALINE LOCK PATENT. MEDICATED FOR PAIN PER EMAR. TOLERATED WELL. RESTING THROUGH THE NIGHT. MONITORED AND MAINTAINED ALL PRECAUTION. BG 114MG/dL AT 1930.
--- NOTE | 2021-12-29 08:32 | NUR ---
PT. ALERT AND ORIENTED X 4, PLEASANT AFFECT. BLOOD SUGAR THIS A.M. 79MG/DL. PATIENT EATING BREAKFAST. BLOOD PRESSURE 86/44, HR 66. DENIES ANY DISCOMFORT OR LIGHTHEADEDNESS. TOPROL AND ZESTRIL HELD. LUZ MARIA MOBLEY. ON R HIP IS CLEAN DRY AND INTACT. DENIES HIP PAIN AT THIS TIME. CALL LIGHT IN REACH.
--- NOTE | 2021-12-29 08:45 | NUR ---
DR. RIVAS HERE TO SEE PT. - NOTIFIED OF LOW BP AND PULSE. ALSO NOTIFIED THAT ZESHAYLEE AND AJAY HELD THIS A.M., PT. ASYMPTOMATIC.
--- NOTE | 2021-12-29 10:01 | NUR ---
Per chart review with Dr. Juarez, patient appropriate for discharge this morning. I went to visit the patient in his [facility] room 208. Patient was sitting upright in his chair, alert, and pleasant. Patient reports that he lives at home with his . He is mostly independent, uses a 4WW daily, manages his own medications. His pharmacy is usually [facility] but, today would prefer [facility]. Patient usually drives himself, but his daughter Rosalind Santillan [phone] will be providing discharge transportation today and will be helping him at home. Patient states he does not have a preference for home health agencies. I called Summer with [facility] regarding the Order. Patient is scheduled for a hospital follow-up with Bne Steve on Friday, December 31, 2021 at 11:40 AM. I also let patient's daughter know of follow up appointment, she plans to help with transportation. Patient, nurse, and patient's daughter agreeable to discharge plan. Patient denies barriers to discharge.
--- NOTE | 2021-12-29 12:44 | NUR ---
DISCHARGED TO HOME. DC INSTRUCTIONS EXPLAINED TO DAUGHTER AND PT., BOTH VERBALIZE UNDERSTANDING. LUZ MARIA KAPLAN. SUPPLIED TO PATIENT. PATIENT VERBALIZE UNDERSTANDING THAT ZESTRIL IS DISCONTINUED. PATIENT BELONGINGS PACKED AND SENT WITH PT.- W/C TO EXIT. FWW IS AT HOME PER PT., AND HOME HEALTH TO FOLLOW.
== END 2021-12-29 13:33 | disposition home health service (06) | DRG 521 ==
LOC: ER 06:27 → SURS 09:47
PROVIDERS: Orthopaedic Surgery; Student in an Organized Health Care Education/Training Program; ADMIT Family Medicine
PROC: 8E0ZXY6 Isolation (ICD-10-PCS; 2021-12-26)
PROC: 0SRR0JZ Replacement of Right Hip Joint, Femoral Surface with Synthetic Substitute, Open Approach (ICD-10-PCS; principal; 2021-12-27 08:30)
DX: S72.011A Unspecified intracapsular fracture of right femur, initial encounter for closed fracture (principal); U07.1 COVID-19; R64 Cachexia; E44.0 Moderate protein-calorie malnutrition; E11.9 Type 2 diabetes mellitus without complications; I10 Essential (primary) hypertension; I48.91 Unspecified atrial fibrillation; E78.5 Hyperlipidemia, unspecified; Z53.29 Procedure and treatment not carried out because of patient's decision for other reasons; Z68.20 Body mass index [BMI] 20.0-20.9, adult; Z95.0 Presence of cardiac pacemaker; Z79.01 Long term (current) use of anticoagulants; Z79.899 Other long term (current) drug therapy; W18.39XA Other fall on same level, initial encounter; Y93.01 Activity, walking, marching and hiking; Y92.002 Bathroom of unspecified non-institutional (private) residence as the place of occurrence of the external cause
CPT/HCPCS: 0241U; 36415; 72170; 73502; 73552; 73700; 80048; 80053; 80069; 82947; 83735; 85025; 85610; 85730; 86850; 86900; 86901; 88305; 88311; 96374; 97110; 97116; 97162; 97165; 97530; 97535; 99285-25; A9270; C1776; J0171; J0690; J0735; J1100; J1170; J1885; J2370; J2405; J2550; J2704; J2795; J3010; J7120

== ENCOUNTER 2022-01-23 11:25 | Emergency (ER) | payer MEDICARE, OTHER ==
[~2022-01-23] VITALS: Ht 177.8 cm; Wt 61.2 kg
[~2022-01-23 11:25] MED LIST changes: +METO25ER PO; +Norco 5-325 MG PO; +WARF5 PO
[2022-01-23 12:25] LABS: Alanine Aminotransfer (ALT/SGP 58 U/L (12-78); Albumin, Blood 2.2 g/dL (3.4-5.0); Albumin/Globulin Ratio 0.6 (0.8-1.8); Alk Phos 94 U/L (50-136); Anion Gap 13 mmol/L (6-16); Aspartate Aminotrans (AST/SGOT 44 U/L (12-37); Bilirubin, Total 0.8 mg/dL (0.1-1.0); Blood Urea Nitrogen 58 mg/dL (8-24); Bun/Creatinine Ratio 71.6 (12.0-20.0); CO2, Blood 30 mmol/L (21-32); Calcium, Blood 7.8 mg/dL (8.5-10.1); Chloride, Blood 92 mmol/L (98-108); Creatinine, Blood 0.81 mg/dL (0.60-1.20); Globulin, Blood 3.5 g/dL (2.2-4.0); Glomerular Filtration Rate >60 (60-); Glucose, Blood 247 mg/dL (70-99); Magnesium, Blood 1.9 mg/dL (1.6-2.4); Potassium, Blood 2.9 mmol/L (3.5-5.5); Sodium, Blood 135 mmol/L (136-145); Total Protein, Blood 5.7 g/dL (6.4-8.2)
[2022-01-23 12:28] LABS: BASOPHILS ABSOLUTE AUTO 0.01 K/mm3 (0.00-0.23); BASOPHILS PERCENT AUTO 0 % (0-2); EOSINOPHILS PERCENT AUTO 0 % (0-6); Hematocrit 25.7 % (37.0-53.0); Hemoglobin 8.1 g/dL (13.5-17.5); IMMATURE GRAN ABSOLUTE AUTO 0.09 K/mm3 (0.00-0.10); IMMATURE GRAN PERCENT AUTO 1 % (0-1); LYMPHOCYTES ABSOLUTE AUTO 0.34 K/mm3 (0.84-5.20); LYMPHOCYTES PERCENT AUTO 3 % (21-46); MONOCYTES ABSOLUTE AUTO 0.22 K/mm3 (0.16-1.47); MONOCYTES PERCENT AUTO 2 % (4-13); Mean Corpuscular HGB 29.2 pg (26.0-34.0); Mean Corpuscular HGB Conc 31.5 g/dL (31.5-36.5); Mean Corpuscular Volume 93 fL (80-100); Mean Platelet Volume 11.3 fL (9.1-12.4); NEUTROPHILS ABSOLUTE AUTO 9.79 K/mm3 (1.96-9.15); NEUTROPHILS PERCENT AUTO 94 % (41-73); Platelet Count 272 K/mm3 (150-400); RDW Coefficient Variation 15.7 % (11.7-14.2); Red Blood Cell Count 2.77 M/mm3 (4.30-5.90); White Blood Cell Count 10.45 K/mm3 (4.00-11.30)
[2022-01-23 12:53] LABS: International Normalized Ratio 1.26
[2022-01-23 13:35] LABS: Influenza A, PCR NEGATIVE (NEGATIVE); Influenza B, PCR NEGATIVE (NEGATIVE); Resp Syncytial Virus, PCR NEGATIVE (NEGATIVE)
[2022-01-23 13:36] LABS: SARS-Cov-2 (COVID-19) PCR, MMC POSITIVE (NEGATIVE)
[2022-01-23 13:48] LABS: International Normalized Ratio 1.3; Prothrombin Time Results 13.4 Sec (9.7-11.5)
[2022-01-23] MEDS ORDERED: CHLO25A PO (14:22)
[2022-01-23] MEDS ORDERED: ONDA4ODT (14:22)
[2022-01-23] MEDS ORDERED: ELIQUIS5 M2 PO (14:23)
== END 2022-01-23 16:52 | disposition short-term general hospital (02) ==
LOC: ER 11:25
PROVIDERS: Student in an Organized Health Care Education/Training Program
DX: U07.1 COVID-19 (principal); K92.2 Gastrointestinal hemorrhage, unspecified; D50.0 Iron deficiency anemia secondary to blood loss (chronic); R11.2 Nausea with vomiting, unspecified; E87.6 Hypokalemia; E86.0 Dehydration; I48.20 Chronic atrial fibrillation, unspecified; T45.1X5A Adverse effect of antineoplastic and immunosuppressive drugs, initial encounter; T45.7X5A Adverse effect of anticoagulant antagonists, vitamin K and other coagulants, initial encounter; I10 Essential (primary) hypertension; E11.9 Type 2 diabetes mellitus without complications; E78.00 Pure hypercholesterolemia, unspecified; M19.90 Unspecified osteoarthritis, unspecified site; Z79.01 Long term (current) use of anticoagulants; Z79.899 Other long term (current) drug therapy
CPT/HCPCS: 0241U; 36415; 36430; 71045; 80053; 82272; 83735; 85025; 85610; 85730; 86850; 86900; 86901; 86923; 93005; 93010; 96365; 96367; 96368; 96375; 96376; 99285-25; C9113; J2405; J3475; J3480; J7030; J7168; P9016